=== PATIENT | male | born 1960 | race Caucasian/White ===

== ENCOUNTER → 2022-08-28 | Emergency (ER) | payer BC ==
[~2022-08-28] VITALS: Ht 172.7 cm; Wt 72.6 kg
[~2022-08-28] MED LIST: FINASTERIDE1 MG; FLUTICASONE-SA1 EAC5; KETO10TA2 PO; MUPIROCIN1 G1 TOP; SULFAMETHOXAZO1 EACH PO
== END | disposition home or self-care (01) ==
LOC: ER 11:35
DX: L03.114 Cellulitis of left upper limb (principal); Z88.1 Allergy status to other antibiotic agents